=== PATIENT | male | born 1945 | race African-American/Black ===

== ENCOUNTER 2017-02-07 12:51 | Emergency (ER) | payer SELFPAY ==
[~2017-02-07] VITALS: Ht 190.5 cm; Wt 82.0 kg
[2017-02-07] MEDS ORDERED: PREDNISONE 20MG TABLET PO ONE (13:30)
[2017-02-07] MEDS ORDERED: DIAZEPAM 2 MG TABLET PO ONE (13:30)
[2017-02-07] MEDS ORDERED: KETOROLAC 60MG/2ML VIAL IM ONE (13:30)
[2017-02-07 13:55] VITALS: BP 189/84
== END 2017-02-07 15:39 | disposition home or self-care (01) ==
LOC: ER 13:05
DX: S39.012A Strain of muscle, fascia and tendon of lower back, initial encounter (principal); X50.9XXA Other and unspecified overexertion or strenuous movements or postures, initial encounter; Y93.89 Activity, other specified; Y92.89 Other specified places as the place of occurrence of the external cause; Y99.8 Other external cause status
CPT/HCPCS: 96372; 99283; J1885; J7512; Z7610